=== PATIENT | male | born 1990 | race Caucasian/White ===

== ENCOUNTER → 2018-05-06 11:33 | Outpatient (CLI) | payer OTHER, SELFPAY ==
--- NOTE | 2018-05-06 | DI.RAD.S_ITS ---
PROCEDURE: XR SOFT TISSUE NECK INDICATIONS: METAL FOREIGN BODY IN THROAT TECHNIQUE: 2 views of the neck were acquired. COMPARISON: None. FINDINGS: Airway: The airway appears patent. Soft tissues: Prevertebral soft tissues are normal in thickness. The epiglottis and aryepiglottic folds appear normal. No soft tissue gas. No radiopaque foreign body is seen. Bones: No suspicious bony lesions. Visualized cervical spine is normally aligned. IMPRESSION: No radiopaque foreign body is seen. No gross necrotic tissue abnormality. Airway is patent. Dictated by: Shahbaz Sorenson M.D. on 05/06/2018 at 12:32 Approved by: Shahbaz Sorenson M.D. on 05/06/2018 at 12:32
--- NOTE | 2018-05-06 | DI.RAD.S_ITS ---
PROCEDURE: XR CHEST 2V INDICATIONS: METAL FOREIGN BODY IN THROAT TECHNIQUE: 2 views of the chest were acquired. COMPARISON: None. FINDINGS: Surgical changes and devices: None. Lungs and pleura: No pleural effusions or pneumothorax. Lungs are clear. Mediastinum: Mediastinal contours are normal. Heart size is normal. Bones and chest wall: No suspicious bony abnormalities. Soft tissues appear unremarkable. IMPRESSION: No acute cardiopulmonary pathology. Dictated by: Shahbaz Sorenson M.D. on 05/06/2018 at 12:30 Approved by: Shahbaz Sorenson M.D. on 05/06/2018 at 12:32
== END ==
PROVIDERS: Family Provider Family Medicine; PCP Family Medicine; Visit Provider Family Medicine
DX: T17.208A Unspecified foreign body in pharynx causing other injury, initial encounter (principal)
CPT/HCPCS: 70360; 71046

== ENCOUNTER → 2019-06-28 12:27 | Outpatient (ROUT) | payer OTHER, SELFPAY ==
[2019-06-28 13:08] LABS: Influenza A - CEPHEID Flu A NEGATIVE (NEGATIVE); Influenza B - CEPHEID Flu B NEGATIVE (NEGATIVE)
== END ==
PROVIDERS: Family Provider Family Medicine; PCP Family Medicine; Visit Provider Family Medicine
DX: R05 Cough (principal); R50.9 Fever, unspecified; R51 Headache
CPT/HCPCS: 87502

== ENCOUNTER 2021-01-08 21:04 | Emergency (ER) | payer OTHER, SELFPAY ==
--- NOTE | 2021-01-08 21:08 | DI.RAD.S_ITS ---
PROCEDURE: XR FINGER LT MIN 2V INDICATIONS: struck with softball TECHNIQUE: AP hand, 2 views of the 3rd finger(s) acquired. COMPARISON: None. FINDINGS: Bones: No fracture demonstrated. There is complete dorsal dislocation of the 3rd distal phalanx. No suspicious bony lesions. Soft tissues: No suspicious soft tissue calcifications. IMPRESSION: Complete posterior dislocation of the distal 3rd phalanx. Dictated by: Malachi Cutler M.D. on 01/08/2021 at 21:27 Approved by: Malachi Cutler M.D. on 01/08/2021 at 21:28
[2021-01-08 21:09] VITALS: BP 145/91; PULSE 77; RESP 18; TEMP 36.7; O2SAT 99
--- NOTE | 2021-01-08 23:28 | ED_ITS ---
HPI - Extremity Injury (Upper) General Chief Complaint: Extremity Injury, Upper Stated Complaint: lt middle finger injury Time Seen by Provider: 01/08/21 23:02 Source: patient Mode of arrival: Ambulatory History of Present Illness HPI narrative: Otherwise healthy 30-year-old gentleman was playing softball this afternoon and went to catch the ball with both hands and dislocated the distal phalanx of his left middle finger. Comes in for further evaluation. Review of Systems Review of Systems Narrative: Pertinent positive and negative findings as per HPI Remainder of review of systems is otherwise unremarkable for Constitutional: Fevers, chills, weakness ENT: No sore throat, neck pain, ear pain CV: Chest pain, palpitations, Respiratory: Cough, wheeze, dyspnea GI: Nausea, vomiting, diarrhea, : Dysuria, hematuria, Exam Narrative Exam Narrative: General: Alert appropriate in no acute distress Respiratory: Able to speak in full sentences, no obvious respiratory distress Skin: No obvious rashes, warm and dry Neurologic: Grossly intact no obvious asymmetries or abnormalities Psych: appropriate insight and affect, cooperative Extremity: Left middle finger with obvious dislocation at the distal PIP joint. Neurovascularly intact no other injury to the hand Initial Vital Signs Initial Vital Signs: Vital Signs Temperature 98.1 F 01/08/21 21:09 Pulse Rate 77 01/08/21 21:09 Respiratory Rate 18 01/08/21 21:09 Blood Pressure 145/91 H 01/08/21 21:09 Pulse Oximetry 99 01/08/21 21:09 Procedures Nerve Block Nerve Block 1: Local Anesthetic: lidocaine 1% Amount of anesthesia used (mL): 5 Side: left Nerve Blocks: digital Procedure Successful: Yes Patient Tolerated Procedure: Well Complications: none Orthopedic Joint Reduction Joint #1: Side: left Joint Reduction Location: finger Analgesia: nerve block Local Anesthesia: lidocaine 1% Amount of anesthesic used (mL): 5 Technique used: direct manipulation Post-reduction neuro exam: intact Post-reduction vascular: intact Splint Applied: Yes Patient Tolerated Procedure: Well Course Orders Ordered: ED Orders 01/08/21 21:08 XR finger LT min 2V Stat Discontinued Medications Acetaminophen (Acetaminophen 325 Mg Tablet) 325 mg PO NOW ONE Stop: 01/08/21 23:28 Last Admin: 01/08/21 23:36 Dose: 325 mg Documented by: PRAVEEN Ibuprofen (Ibuprofen 400 Mg Tablet) 400 mg PO NOW ONE Stop: 01/08/21 23:28 Last Admin: 01/08/21 23:36 Dose: 400 mg Documented by: PRAVEEN Vital Signs Vital signs: Vital Signs - 8 hr 01/08/21 21:09 Temperature 98.1 F Pulse Rate 77 Respiratory Rate 18 Blood Pressure 145/91 H Pulse Oximetry 99 MDM - Extremity Injury (Upper) Medical Records Attestation: I reviewed the patient's medical records. Imaging Data X-ray finger: Radiologist's Impression: FINDINGS: Bones: No fracture demonstrated. There is complete dorsal dislocation of the 3rd distal phalanx. No suspicious bony lesions. Soft tissues: No suspicious soft tissue calcifications. IMPRESSION: Complete posterior dislocation of the distal 3rd phalanx. Dictated by: Malachi Cutler M.D. on 01/08/2021 at 21:27 [facility] [place] Narrative Medical decision making narrative: 30-year-old gentleman with a dorsal dislocation of the distal phalanx left middle finger while playing softball. Digital block was used for anesthesia and with gentle manipulation the finger was easily relocated. Using a aluminum foam splint the finger was splinted and then charles-taped to his ring finger for comfort. He is safe for home discharge Discharge Plan Departure Patient Disposition: Home Clinical Impression: Dislocation of finger Qualifiers: Encounter type: initial encounter Qualified Code(s): S63.259A - Unspecified dislocation of unspecified finger, initial encounter Instructions: DI for Finger Dislocation Activity Restrictions/Additional Instructions: Thank you for coming in today That tip of your finger was dislocated and went back into place quite easily. Use the splint and keep it charles taped to the ring finger the next 2 days. After that just use the splint to protect that finger wall the tendons continue to heal. After about a week you will get to a point where it is more comfortable to not use the splint than to have it in place and at that point it is fine to take the splint off completely Using 400 mg of ibuprofen (2 [id number] pills) and 1 Tylenol every 6 hours can be very helpful in controlling pain. I wish you the best
[2021-01-08] MEDS: IBUPROFEN 400 MG TABLET PO (23:36)
[2021-01-08] MEDS: ACETAMINOPHEN 325 MG TABLET PO (23:36)
== END 2021-01-09 | disposition home or self-care (01) ==
PROVIDERS: Emergency Provider Emergency Medicine
DX: S63.259A Unspecified dislocation of unspecified finger, initial encounter (principal); W21.07XA Struck by softball, initial encounter
CPT/HCPCS: 26700; 64450; 73140; 99283